=== PATIENT | male | born 1950 | race Caucasian/White ===

== ENCOUNTER 2018-11-03 11:23 | Outpatient (CLI) | payer MEDICARE, BC ==
[~2018-11-03] VITALS: Ht 167.6 cm; Wt 67.3 kg
--- NOTE | ~2018-11-03 | HEMODYNAMI ---
PATIENT:MEY GONZALEZ MEDICAL RECORD: [id number] : 46 LOCATION:[facility] ADMISSION DATE: 11/03/18 Generatedon:11/03/201814:45 Patient name: MEY GONZALEZ Patient #: [id number] SSN: : [birth year] Date of study: 11/03/2018 Page: Of Hemodynamic Procedure Report Patient Data Patient Demographics Procedure consent was obtained First Name: MEY Gender: Male Last Name: LISA : 1950 [facility] Initial: CAIN Age: 68 year(s) Patient #: [id number] Race: Additional ID: [id number] Contact details Address: [address] State: [place] City: [place] Zip code: [address] Past Medical History Allergies: No known allergies Admission Admission Data Admission Date: 11/03/2018 Admission Time: 11:23 Admit Source: Other Lab Results Lab Result Date: 11/03/2018 Lab Result Time: 11:50 Biochemistry Name Units Result Min Max BUN mg/dl 20 --(----)*- 7 18 Creatinine mg/dl 1 --(--*-)-- 0.6 1.3 CBC Name Units Result Min Max Hematocrit % 46.5 --(-*--)-- 42 54 Hemoglobin g/dl 16.5 --(--*-)-- 13.5 17.5 Procedure Procedure Types Cath Procedure Diagnostic Procedure LHC LH w/Coronaries PCI Procedure Coronary Stent Coronary Stent Initial Coronary Stent Additional Procedure Description Procedure Date Procedure Date: 11/03/2018 Procedure Start Time: 14:11 Procedure End Time: 14:44 Procedure Staff Name Function Reno Miranda MD Performing Physician Kirill Lenz RT Monitor Bandar Stevenson RT Scrub Deedee Dutton RN Nurse Procedure Data Cath Procedure Fluoroscopy Diagnostic fluoroscopy Total fluoroscopy Time: 7.1 time: 7.1 min min Diagnostic fluoroscopy Total fluoroscopy dose: 992 dose: 992 mGy mGy Contrast Material Contrast Material Type Amount (ml) Isovue 300 118 Entry Location Entry Primary Successful Side Size Upsize Upsize Entry Closure Succes sful Closure Location (Fr) 1 (Fr) 2 (Fr) Remarks Device Remarks Femoral Right 5 Fr 6 Fr Exoseal artery Short Estimated blood loss: 10 ml Diagnostic catheters Device Type Used For End Catheter Placement MULTIPACK JL 4.0 5Fr Procedure catheter MULTIPACK 3DRC 5Fr Procedure catheter MULTIPACK Pigtail 5 Fr Procedure catheter Procedure Medications Medication Administration Route Dosage Oxygen etCO2 Nasal cannula 2 l/min Lidocaine 2% added to field 20 Heparin Flush Bag added to field 2 bags (1000units/500ml NS) 0.9% NaCl I.V. 100 ml/hr Versed I.V. 1 mg Fentanyl I.V. 50 mcg Versed I.V. 1 mg Heparin Bolus I.V. 4000 units Integrilin (Bolus I.V. 6.2 ml 2mg/ml) Fentanyl I.V. 50 mcg Plavix P.O. 600 mg Hemodynamics Rest Heart Rate: 67 (bpm) Pressure Samples Time Site Value (mmHg) Purpose Heart Use Rate(bpm) 14:18 LV 143/-5,6 Snapshot 80 14:19 LV 166/-5,16 EDP 61 Snapshots Pre Cath Intra NCS Post Cath Vital Signs Time Heart Resp SPO2 etCO2 NIBP (mmHg) Rhythm Pain Sedation Rate (ipm) (%) (mmHg) Status Level (bpm) 14:05:40 67 16 96 31.6 118/67(86) NSR 0 (11) 10(A) , No pain 14:09:52 76 14 96 0 122/58(69) NSR 0 (11) 10(A) , No pain 14:13:56 73 17 96 0 102/66(75) NSR 0 (11) 9(A) , No pain 14:18:02 66 19 94 0 110/69(98) NSR 0 (11) 9(A) , No pain 14:22:10 75 17 96 0 113/69(88) NSR 0 (11) 9(A) , No pain 14:26:18 77 18 95 0 121/75(95) NSR 0 (11) 9(A) , No pain 14:31:17 73 19 98 22.5 139/82(130) NSR 0 (11) 10(A) , No pain 14:35:31 73 19 98 33.8 141/94(123) NSR 0 (11) 10(A) , No pain 14:39:49 81 7 98 32.3 153/82(117) NSR 0 (11) 10(A) , No pain 14:44:11 64 11 99 22.5 143/81(128) NSR 0 (11) 10(A) , No pain Medications Time Medication Route Dose Verified Delivered Reason Notes Effectiveness by by 14:04:51 Oxygen etCO2 2 Reno Mark used for Nasal l/min St Ashwin Dutton RN procedure cannula 14:05:00 Lidocaine 2% added 20ml Reno Bojorquez for local to vial [facility] anesthetic field MD DUMONT 14:05:08 Heparin Flush added 2 Reno Bojorquez used for Bag to bags [facility] procedure (1000units/500ml field MD DUMONT NS) 14:05:20 0.9% NaCl I.V. 100 Reno Mark Per physician ml/hr St Ashwin Dutton RN, MD 14:09:34 Versed I.V. 1 mg Reno Mark for sedation St Ashwin Dutton RN, MD 14:09:40 Fentanyl I.V. 50 Reno Mark for sedation mcg [facility] Ashwin Dutton RN, MD 14:13:10 Versed I.V. 1 mg Reno Mark for sedation St Ashwin Dutton RN, MD 14:21:13 Heparin Bolus I.V. 4000 Reno Mark for verif ied units St Ashwin Dutton RN anticoagulation with dr MD larry 14:22:43 Integrilin I.V. 6.2 Reno Mark for waste d (Bolus 2mg/ml) ml St Ashwin Dutton RN antiplatelet 3.8 ml MD therapy of vial 14:29:43 Fentanyl I.V. 50 Reno Mark for sedation mcg [facility] Ashwin Dutton RN, MD 14:33:48 Plavix P.O. 600 Reno [address] for mg [facility] Ashwin Dutton RN antiplatelet therapy Procedure Log Time Note 13:50:56 Informed consent obtained and on chart 13:50:59 Admit Source: Other 13:51:44 Diagnostic Cath status Elective 13:51:46 Deedee Dutton RN sent for patient. Start room use. 13:51:46 Time tracking: Regular hours (M-F 7:00 - 5:00) 13:51:50 Plan of Care:Hemodynamics will remain stable., Cardiac rhythm will remain stable., Comfort level will be maintained., Respiratory function will remain adequate., Patient/ family verbilizes understanding of procedure., Procedure tolerated without complication., Recovers from procedure without complications.. 13:52:59 Lab Result : BUN 20 mg/dl ::59 Lab Result : Hemoglobin 16.5 g/dl 13:52:59 Lab Result : Creatinine 1 mg/dl 13::59 Lab Result : Hematocrit 46.5 % 13:53:01 Lab results completed and on chart. 13:53:15 H&P Date Dictated: 10/27/2018 Within 30 days and on chart., H&P Addendum completed by physician on day of procedure. (MUST COMPLETE FOR ALL OUTPATIENTS). 13:54:39 Patient received from Pre/Post Procedure Room to CCL 1 Alert and oriented. Tansferred to table in Supine position. 13:54:42 Warm blankets applied, and malu hugger turned on for patient comfort. 13:54:43 Correct patient and procedure confirmed by team. 13:54:43 ECG and BP/O2 sat monitors applied to patient. 13:54:45 Pre-procedure instructions explained to patient. 13:54:46 Pre-op teaching completed and patient verbalized understanding. 13:54:48 Family in waiting room. 13:54:51 Patient NPO since Breakfast. 13:54:58 Patient allergic to No known allergies 14:04:36 Vital chart was started 14:04:51 Oxygen 2 l/min etCO2 Nasal cannula was administered by Deedee Dutton RN; used for procedure; 14:05:00 Lidocaine 2% 20ml vial added to field was administered by Reno Miranda MD; for local anesthetic; 14:05:08 Heparin Flush Bag (1000units/500ml NS) 2 bags added to field was administered by Reno Miranda MD; used for procedure; 14:05:20 0.9% NaCl 100 ml/hr I.V. was administered by Deedee Dutton RN; Per physician; 14:06:18 Is the patient allergic to Iodine/contrast media? No. 14:06:31 Is patient on blood thinner?No 14:06:38 Patient diabetic? No. 14:06:45 ----Pre-sedation anethsthesia assessment.---- 14:06:52 Previous problem with sedation/anesthesia? No ? 14:06:54 Snore? Yes 14:06:56 Sleep apnea? No 14:07:02 Deviated septum? Yes 14:07:04 Opens mouth fully? Yes 14:07:07 Sticks out tongue? Yes 14:07:15 Airway obstruction? No ? 14:07:18 Dentures? No ? 14:07:24 Pre procedure: right dorsailis pedis pulse 2+ Normal; easily identifiable; not easily obliterated 14:07:29 Modified Devonte's test Ulnar < 7 seconds 14:07:49 PATIENT FAILED ALLENS 14:07:55 Baseline sample Acquired. 14:07:59 Rhythm: sinus rhythm 14:08:01 Full Disclosure recording started 14:08:15 Patient pain scale 0/10 ?. 14:08:26 IV patent on arrival in left hand with 0.9% NaCl at [facility]. 14:08:32 Right groin area was prepped with chlora-prep and draped in sterile fashion 14:08:33 Alarms reviewed by R. N. 14:08:34 Sharps counted by scrub and verified by R.N. 14:08:38 Physician arrived 14:08:39 --------ALL STOP TIME OUT------ 14:08:39 Final Timeout: patient, procedure, and site verified with staff and physician. All members of the team are in agreement. 14:08:41 Right groin site verified by team. 14:08:47 Maximum allowable Isovue 300 dose 300ml. Physician notified. (300ml for normal creatinines. For patients with creatinine of 1.7 or higher multiply weight(kg) x 5 divided by creatinine.) 14:08:53 Fire Safety Assessment: A--An alcohol-based skin anteseptic being used preoperatively., C--Open oxygen or nitrous oxide is being used., D--An ESU, laser, or fiber-optic light is being used. 14:09:01 Physical assessment completed. ASA score P 2 - A patient with mild systemic disease as per Reno Miranda MD. 14:09:17 Sedation plan: IV Moderate Sedation Medication:Versed, Fentanyl 14:09:34 Versed 1 mg I.V. was administered by Deedee Dutton RN; for sedation; 14:09:35 Use device set Femoral Dx 14:09:36 ACIST Syringe (88271) opened to sterile field. 14:09:37 Bag Decanter (2002S) opened to sterile field. 14:09:38 Medline Cath Pack ([id number]) opened to sterile field. 14:09:38 DIAGNOSTIC WIRE .035 260cm J wire (759583) opened to sterile field. 14:09:40 Fentanyl 50 mcg I.V. was administered by Deedee Dutton RN; for sedation; 14:09:41 ACIST Hand Control (28417) opened to sterile field. 14:09:42 ACIST Manifold (25435) opened to sterile field. 14:09:44 DIAGNOSTIC Multipack 5Fr catheter set ([id number]) opened to sterile field. 14:09:47 Tegaderm 4 x 4 (1626W) opened to sterile field. 14:09:51 SHEATH 5FR Mclean (KBO970) opened to sterile field. 14:11:10 Procedure started. 14:11:15 Local anesthetic to right femoral artery with Lidocaine 2% by Reno Miranda MD.INITIAL ACCESS ONLY 14:12:09 A 5 Fr sheath was inserted into the Right Femoral artery 14:12:17 Zero performed for pressure channel P1 14:12:44 A MULTIPACK JL 4.0 5Fr catheter was advanced over the wire and used for Procedure. 14:13:10 Versed 1 mg I.V. was administered by Deedee Dutton RN; for sedation; 14:13:26 LCA angiography performed. 14:14:22 Catheter removed. 14:14:45 A MULTIPACK 3DRC 5Fr catheter was advanced over the wire and used for Procedure. 14:15:11 RCA angiography performed. 14:16:26 A MULTIPACK Pigtail 5 Fr catheter was advanced over the wire and used for Procedure. 14:16:48 INFLATOR Merit BasixCompak (EF4253) opened to sterile field. 14:18:04 SHEATH 6FR Mclean (CWJ192) opened to sterile field. 14:18:15 WHISPER 300cm guide wire ([id number]) opened to sterile field. 14:19:14 LV gram done using GLORIA 14:19:20 EF : 55 % 14:19:25 LV hemodynamics recorded. 14:19:35 GUIDE 6FR XBLAD 3.5 catheter ([id number]) opened to sterile field. 14:19:49 Sheath upsized to a 6 Fr Short. 14:20:13 Proceeding to intervention. 14:20:26 PCI Cath status Elective 14:20:36 6 Fr XBLAD 3.5 guide catheter was inserted over the wire 14:21:13 Heparin Bolus 4000 units I.V. was administered by Deedee Dutton RN; for anticoagulation; verified with dr larry 14:22:21 WHISPER wire advanced. 14:22:23 Wire advanced across lesion. 14:22:30 LAD 14:22:43 Integrilin (Bolus 2mg/ml) 6.2 ml I.V. was administered by Deedee Dutton RN; for antiplatelet therapy; wasted 3.8 ml of vial 14:24:32 Place stent Inflation Number: 1 A IRVING RX 3.0 x 18 stent ([id number]) was prepped and advanced across the Mid LAD. The stent was deployed at 14 ZEHCARIAH for 0:30 (min:sec). 14:25:31 Wire redirected to DIAGONAL. 14:27:14 Stent catheter was removed intact over wire. 14:29:15 Place stent Inflation Number: 1 A IRVING OTW 2.5 x 18 stent ([id number]) was prepped and advanced across the 1st Diag. The stent was deployed at 12 ZECHARIAH for 0:30 (min:sec). 14:29:20 EXOSEAL 6Fr (EX600) opened to sterile field. 14:29:37 Wire redirected to LAD. 14:29:43 Fentanyl 50 mcg I.V. was administered by Deedee Dutton RN; for sedation; 14:30:34 Wire removed. unable to cross lesion. 14:31:07 WHISPER 300cm guide wire ([id number]) opened to sterile field. 14:31:27 NEW WHISPER wire advanced. 14:31:41 LAD 14:31:55 Stent balloon re-inserted over wire. 14:32:31 Inflation number: 2 The stent balloon was then re-inflated across the Mid LAD to 6 ZECHARIAH for 0:30 (min:sec). 14:32:44 Stent catheter was removed intact over wire. 14:32:45 Wire removed. 14:32:50 Guide catheter removed. 14:33:15 Procedure type changed to Cath procedure, Diagnostic procedure, LHC, LHC w/Coronaries, PCI procedure, Coronary Stent, Coronary Stent Initial, Coronary Stent Additional 14:33:43 Sheath removed intact; hemostasis achieved with Exoseal to the Right Femoral artery. 14:33:46 Procedure ended.(Physican Out) 14:33:48 Plavix 600 mg P.O. was administered by Deedee Dutton RN; for antiplatelet therapy; 14:33:59 Fluoroscopy time 07.10 minutes. 14:34:14 Fluoroscopy dose: 992 mGy 14:34:14 Flurop Dose total: 992 14:34:22 Contrast amount:Isovue 300 118ml. 14:34:24 Sharps counted by scrub and verified by R.N. 14:42:22 Post-op/insertion site Right Femoral artery dressed using a 4 x 4 and Tegaderm. 14:42:30 Post right femoral artery:hematoma 14:42:47 Femstop placed over the right femoral artery at 142 mmHg. Hemostasis achieved. 14:43:27 Post procedure: right dorsailis pedis pulse 1+ Palpable, but thready & weak; easily obliterated. 14:43:31 Post-procedure physical assessment completed. ASA score P 2 - A patient with mild systemic disease as per Reno Miarnda MD. 14:43:35 Post procedure rhythm: sinus rhythm 14:43:38 Estimated blood loss: 10 ml 14:44:07 Patient needs reinforcement of post procedure teaching. 14:44:09 Procedure and supply charges have been captured, reviewed, submitted and are correct. 14:44:10 Vital chart was stopped 14:44:11 See physician's report for complete and final results. 14:44:18 Report given to Pre/Post Procedure Room. 14:44:23 Patient transfered to Pre/Post Procedure Room with Stretcher. 14:44:26 Procedure ended. 14:44:26 Full Disclosure recording stopped 14:44:31 End room use (Document Last) Intervention Summary Intervention Notes Time ActionType Lesion and Equipment Used Action# Pressure Duration Attributes 14:24:32 Place stent Mid LAD IRVING RX 3.0 x 1 14 00:30 18 stent ([id number]) 14:29:15 Place stent 1st Diag IRVING OTW 2.5 x 1 12 00:30 18 stent ([id number]) 14:32:31 Reinflate Mid LAD IRVING OTW 2.5 x 2 6 00:30 stent 18 stent balloon ([id number]) Device Usage Item Name Manufacture Quantity Catalog Hospital Part [facility] Lot# / Number Charge Number Stock Stock Serial# Code ACIST Syringe Acist 1 48540 731560 756667 431501 20 (68877) Medical Systems Inc Bag Decanter Microtek 1 013152 80120 799481 5 () Medical Inc. Medline Cath Medline 1 [id number] 756819 60982 442760 5 Pack ([id number]) DIAGNOSTIC St Lionel 1 062010 979691 648700 495733 30 WIRE .035 260cm J wire (711799) ACIST Hand Acist 1 04871 138031 203201 262765 5 Control Medical (09805) Systems Inc ACIST Manifold Acist 1 21741 812444 356914 109774 5 (71463) Medical Systems Inc DIAGNOSTIC Cardinal 1 WW5302 119310 25272 173675 30 Multipack 5Fr Health catheter set (LP3146) Tegaderm 4 x 4 3M 1 1626W 853669 789539 406822 5 (1626W) SHEATH 5FR Terumo 1 SAO493 845624 135252 680998 5 Mclean (AXH006) MULTIPACK JL Cardinal 1 611594 5 4.0 5Fr Health catheter MULTIPACK 3DRC Cardinal 1 233189 5 5Fr catheter Health MULTIPACK Cardinal 1 048170 5 Pigtail 5 Fr Health catheter INFLATOR Merit Merit 1 WE2917 329820 248923 630022 15 NX [facility] ([id number]) SHEATH 6FR Terumo 1 WPP850 579418 009029 408334 40 Mclean (FRH280) WHISPER 300cm Martinez 2 [id number] 070065 580507 983483 5 guide wire Vascular ([id number]) GUIDE 6FR Cardinal 1 [id number] 036856 682976 653327 10 XBLAD 3.5 Health catheter ([id number]) IRVING RX 3.0 x Medtronic 1 [id number] 153094 8465393 156229 5 [id number] 18 stent ([id number]) IRVING OTW 2.5 x Medtronic 1 [id number] 062383 46116 495981 5 [id number] 18 stent ([id number]) EXOSEAL 6Fr Cardinal 1 EX600 909066 872186 497213 10 (EX600) Health Signature Audit Deforest Stage Time Signature Unsigned Intra-Procedure 11/03/2018 Kirill Lenz 2:45:07 PM RT(R) (CV) Signatures Monitor : Kirill Lenz RT Signature : Date : Time : [id number] [place] [address]
[~2018-11-03 11:23] MED LIST: BENADRYL INJ50 MG/ML PO; COLACE100 MG PO; DULCOLAX10 MG/SUPP RC; ELIQUIS2.5 MG PO; MIRALAX17 GM PO; MS CONTIN30 MG PO; PERCOCET 10/3251 TA1 PO; SENOKOT-S TABLE1 TAB PO
[2018-11-03] MEDS ORDERED: BAYER CHEWABLE81 MG PO (11:41)
[2018-11-03] MEDS ORDERED: B-12 DOTS500 MCG PO (11:42)
[2018-11-03 11:50] VITALS: BP 155/75; Ht 167.6 cm; Wt 67.3 kg
[2018-11-03 11:58] LABS: BASOPHILS 0.6 % (0-2); EOSINOPHILS 2.4 % (0-7); HEMATOCRIT 46.5 % (42.0-54.0); HEMOGLOBIN 16.5 g/dL (13.5-17.5); IMMATURE GRANULOCYTES 0.3 % (0-5); LYMPHOCYTES 23.5 % (15-50); MCH 30.7 pg (26.0-34.0); MCHC 35.5 g/dL (31.0-37.0); MCV 86.6 fL (80.0-100.0); MEAN PLATELET VOLUME 10.5 fL (7.4-10.4); MONOCYTES 11.3 % (2-11); NEUTROPHILS 61.9 % (40-80); PLATELET COUNT 194 10x3/uL (130-400); RBC 5.37 10x6/uL (4.20-6.10); RDW 14.3 % (11.5-14.5); WBC 7.1 10x3/uL (4.8-10.8)
[2018-11-03 12:06] LABS: CALC OSMOLALITY 278 mosm/kg (275-300); CALCIUM 9.2 mg/dL (8.5-10.1); CARBON DIOXIDE 23.1 mmol/L (21.0-32.0); CHLORIDE - SERUM 104 mmol/L (98-107); GLUCOSE 96 mg/dL (74-106); POTASSIUM - SERUM 4.1 mmol/L (3.5-5.1); SODIUM 138 mmol/L (136-145); UREA NITROGEN 20 mg/dL (7-18); eGFR NON AFRICAN AMERICAN 78 mL/min (90-120)
[2018-11-03] MEDS ORDERED: PLAVIX75 MG PO (14:57)
--- NOTE | 2018-11-03 15:02 | NUR ---
RECIEVED TO ROOM VIA STRETCHER FROM SHIPYARD HELPER WITH FEMSTOP TO R/GROIN. PRESSURE IS AT 150 WITH HEMATOMA MARKED FOR OBSERVATION. R/FOOT IS WARM TO TOUCH WITH PULSES PALPABLE. PATIENT DENIED CHEST PAIN ON ARRIVAL HR 60 BP 142/80
--- NOTE | 2018-11-03 15:16 | NUR ---
FEMSTOP REMAINS TO R/GROIN WITH PRESSURE AT 150 NO ADDITIONAL GROWTH TO HEMATOMA. HR 64 BP 154/82 CHEST PAIN IS DENIED
--- NOTE | 2018-11-03 15:33 | NUR ---
TOLERATING SIPS OF SODA WITH NAUSEA DENIED. FEMSTOP REMAINS CDI WITH NO GROWTH TO HEMATOMA
--- NOTE | 2018-11-03 15:47 | NUR ---
PRESSURE TO FEMSTOP LOWERED TO 120 WITH NO GROWTH TO HEMATOMA
--- NOTE | 2018-11-03 15:55 | NUR ---
PRESSURE SLOWLY LOWERED TO 100 WITH NO GROWTH TO HEMATOMA
--- NOTE | 2018-11-03 16:10 | NUR ---
PRESSURE TO FEMSTOP LOWERED TO 100 NO GROWTH TO HEMATOMA
--- NOTE | 2018-11-03 16:28 | NUR ---
PRESSURE TO FEMSTOP REMOVED WITH FEMSTOP STILL IN PLACE NO BLEEDING OR GROWTH TO HEMATOMA. VSS
--- NOTE | 2018-11-03 17:00 | NUR ---
PT RESTING W EYES CLOSED, FEMSTOP IN PLACE TO R GROIN W/O PRESSURE. NO BLEEDING OR GROWTH IN HEMATOMA. PEDAL PULSES PALPABLE. SIPS OF SPRITE GIVEN. PT DENIES PAIN OR NEEDS AT THIS TIME. CALL LIGHT IN REACH AND FAMILY REMAINS AT BEDSIDE. VSS.
--- NOTE | 2018-11-03 17:30 | NUR ---
PT STATES NEEDS TO VOID BUT CAN'T IN THE BED, EXPLAINED HE COULDN'T GET UP RIGHT NOW AND HE WANTS TO WAIT. GROIN STILL W FEMSTOP IN PLACE W/O PRESSURE. HEMATOMA REMAINS SAME HASN'T GROWN IN SIZE. NO BLEEDING OR ADD'L SWELLING NOTED. HOB ELEVATED SLIGHTLY FOR COMFORT. CALL LIGHT IN REACH
--- NOTE | 2018-11-03 17:58 | NUR ---
FEMSTOP REMOVED, NO BLEEDING OR ADD'L SWELLING NOTED. HEMATOMA SAME SIZE AND SOFT TO TOUCH. 4X4 AND LG TEGADERM DRESSING APPLIED. VSS. DENIES OTHER NEEDS.
--- NOTE | 2018-11-03 18:12 | NUR ---
IV REMOVED W CATH INTACT, MONITORS REMOVED. R GROIN DRESSING CDI, NO BLEEDING OR ADD'L SWELLING NOTED. PT AMBULATED TO BR.
--- NOTE | 2018-11-03 18:27 | NUR ---
DISCHARGE INSTRUCTIONS REVIEWED W PT AND , BOTH VERBALIZED UNDERSTANDING. 1830 PT DISCHARGED VIA WC WITH ALL BELONGINGS TO PRIVATE VEHICLE
--- NOTE | 2018-11-08 13:26 | OP ---
PATIENT NAME: MEY GONZALEZ MEDICAL RECORD: [id number] :46 LOCATION:D.CAT ADMISSION DATE: SURGEON: LEONIDAS LEGGETT MD DATE OF OPERATION: 11/03/2018 PROCEDURE: Left heart catheterization, selective coronary angiography plus PTCA and stent, right femoral artery approach. CATHETERS: A 5-Bolivian sheath, 5/4 pig. The procedure was well tolerated. We proceeded immediately with stenting to LAD and stenting to diagonal. FINDINGS: Left ventriculography in 30-degree GLORIA view: Normal wall motion. Normal systolic function. CORONARY ANATOMY: LEFT MAIN: Left main is free of disease. LAD: It has a complex stenosis from just past the first diagonal to after the first septal, about 80%. There is a moderate-size diagonal 1 that has about elongated 80% stenosis. CIRCUMFLEX: Free of disease. RIGHT CORONARY ARTERY: It has 80% stenosis in mid portion. PLAN: Intervention in a staged fashion. DESCRIPTION OF PROCEDURE: A 5-Bolivian sheath was exchanged for a 6-Bolivian sheath. XB LAD guiding catheter provided excellent guide catheter support followed by 300 cm Whisper wire placed across the tightly occluded LAD down this portion of the vessel. Stent deployed was 3.0 x 18 mm Knobel drug-eluting stent to 14 atmospheres. Next, the wire was withdrawn and we placed the guidewire down the 80% stenosed diagonal. Stent deployed was 2.5 x 15 mm again Donnell drug-eluting stent up to 14 atmospheres for 45 seconds. Final angiography shows excellent resolution of 80% stenosis in the LAD and 70% to 80% stenosis in the diagonal. MAREK flow was 3 throughout the procedure. Sheath was closed with ExoSeal device. Plavix was loaded in the lab. Plan for intervention on the right at a later date. TRANSINT:[id number] Voice Confirmation ID: [id number] DOCUMENT ID: [id number] LEONIDAS LEGGETT MD at 1326 CC: [id number] DICTATION DATE: 11/03/18 1440 RUBY ON RAILS WEB DEVELOPER: 11/03/18 1846 DEP CLI 11/03/18 [place] [address]
== END 2018-11-03 18:29 | disposition home or self-care (01) ==
LOC: D.CATH 11:23
PROVIDERS: ATTEND Internal Medicine Interventional Cardiology
DX: I25.119 Atherosclerotic heart disease of native coronary artery with unspecified angina pectoris (principal); Z01.812 Encounter for preprocedural laboratory examination
CPT/HCPCS: 93458; C9600; C9601

== ENCOUNTER 2018-11-10 11:49 | Outpatient (CLI) | payer MEDICARE, BC | END 2018-11-10 17:15 | disposition home or self-care (01) | LOC: D.CATH 11:49 | DX: I25.10 Atherosclerotic heart disease of native coronary artery without angina pectoris (principal) ==

== ENCOUNTER → 2019-04-11 09:55 | Outpatient (CLI) | payer MEDICARE, BC ==
[2018-11-10 12:20] VITALS: BMI 22.3
[~2019-04-11 09:55] MED LIST changes: +B-12 DOTS500 MCG PO; +BAYER CHEWABLE81 MG PO; +HYDROCODON-ACE1 EA10 PO; +KEFLEX500 MG PO; +PLAVIX75 MG PO
== END | disposition home or self-care (01) ==
LOC: D.CT 09:55
PROVIDERS: ATTEND Nurse Practitioner Family
DX: M25.561 Pain in right knee (principal)

== ENCOUNTER 2019-05-19 05:11 | Day surgery (SDC) | payer MEDICARE, BC ==
[~2019-05-19] VITALS: Ht 167.6 cm; Wt 62.6 kg
[~2019-05-19 05:11] MED LIST changes: -HYDROCODON-ACE1 EA10 PO; -KEFLEX500 MG PO
[2019-05-19 05:53] LABS: HEMATOCRIT 45.7 % (42.0-54.0); HEMOGLOBIN 15.5 g/dL (13.5-17.5); MCH 30.2 pg (26.0-34.0); MCHC 33.9 g/dL (31.0-37.0); MCV 88.9 fL (80.0-100.0); MEAN PLATELET VOLUME 10.5 fL (7.4-10.4); RBC 5.14 10x6/uL (4.20-6.10); RDW 14.1 % (11.5-14.5); WBC 7.3 10x3/uL (4.8-10.8)
[2019-05-19 06:12] VITALS: BP 140/75; Ht 167.6 cm; Wt 62.6 kg
[2019-05-19] MEDS ORDERED: KEFLEX500 MG PO (08:21)
[2019-05-19] MEDS ORDERED: HYDROCODON-ACE1 EA10 PO (08:21)
--- NOTE | 2019-05-19 11:32 | OP ---
PATIENT NAME: MEY SERRANO MEDICAL RECORD: [id number] :46 LOCATION:[facility]OPS ADMISSION DATE: SURGEON: GRANT MUNOZ DO DATE OF OPERATION: 05/19/2019 PROCEDURE PERFORMED: Removal of loose body of the right knee with partial lateral meniscectomy. PREOPERATIVE DIAGNOSIS: Loose body of the right knee. POSTOPERATIVE DIAGNOSES: Loose body of the right knee with lateral meniscal tear. INDICATIONS: Mr. 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 He has had some catching, popping. He had a CT done, which showed a loose body in the knee, quite large. I informed him that I could scope and try to remove it to give him some relief, but I could not promise that it would not recur or he would not have continued pain. He was okay with that and signed the consent. He is aware of the risk of infection with the uni knee in there as well as bleeding, damage to nerves and vessels, and the need for further surgery, and he signed the consent. SURGEON: Grant Munoz DO DESCRIPTION OF PROCEDURE: The patient was taken to the operative suite, given a general anesthetic and a gram of Ancef. LMA was placed. The right lower extremity was then prepped and draped in sterile fashion. Timeout was performed. Everyone was in agreement with correct side, site, and patient and procedure. The incision then began over the lateral aspect of the knee for the portal after it was injected with 1 mL of 0.25% Marcaine with epinephrine there and on the medial side. A trocar was entered into the knee. The knee was inspected. Loose body was seen in the lateral gutter, not the medial gutter and then the notch had some synovitis. The medial portal was then established with an 18-gauge spinal needle and 11-blade scalpel. A shaver was brought in trim out some of the synovitis to get a better view. Notch was inspected. ACL was in good repair. There were no loose bodies in the notch. A probe was then brought in. The knee was [id number], lateral compartment was inspected. The cartilage was in good repair, but I did see a meniscal tear on the very inner portion. The shaver was brought in to trim that down. The partial lateral meniscectomy was done at that time. Then, switched portals and got a view of the loose body in the lateral gutter. We then switched back to lateral portal and a lateral stab incision was made, to grab the loose body out to reach the loose body better and then to burn some of the bleeders. The tourniquet was inflated at that time for 5 minutes and let down. Bleeding was coagulated with the burner. The loose body was grabbed with a grasper and taken out through the lateral portal. Tourniquet was then let down after bleeding had been coagulated and no bleeding was seen after that. The loose body was removed and the incision sites were closed with 5-0 Monocryl in inverted interrupted fashion. Steri-Strips, Adaptic, 4 x 4's, ABD, Webril, Jaylan wrap were then placed on the knee and KRYSTEN hose stockinette up to the knee. He was awakened and taken to recovery in stable condition. BLOOD LOSS: Minimal. COMPLICATIONS: None. OPERATIVE REPORT [id number] MEY SERRANO TRANSINT:[id number] Voice Confirmation ID: [id number] DOCUMENT ID: [id number] GRANT MUNOZ DO at 1132 CC: [id number] DICTATION DATE: 05/19/19817 MISSION COMMANDER: 05/19/19 1007 [facility] 05/19/19 [facility] [address] [place] [address]
== END 2019-05-19 10:20 | disposition home or self-care (01) ==
LOC: D.OPS 05:11 → D.PAN 07:00 → D.OPS 10:20
PROVIDERS: Anesthesiology; ATTEND Orthopaedic Surgery
DX: S83.281A Other tear of lateral meniscus, current injury, right knee, initial encounter (principal)

== ENCOUNTER → 2019-08-22 08:39 | Outpatient (CLI) | payer MEDICARE, BC ==
[2019-05-19 06:12] VITALS: BMI 22.3
--- NOTE | ~2019-08-22 | EC ---
PATIENT:MEY GONZALEZ DATE OF SERVICE: 08/22/19 SEX: M MEDICAL RECORD: [id number] DATE OF : [birth year] LOCATION:[facility] AGE OF PATIENT: 69 ADMISSION DATE: 08/22/19 REFERRING PHYSICIAN: INTERPRETING PHYSICIAN: LEONIDAS LEGGETT MD ECHOCARDIOGRAM REPORT ECHO CHARGES 4 ECHO COMPLETE Date: 08/22/19 CLINICAL DIAGNOSIS: CAD/ASSESS EF AND VALVES ECHOCARDIOGRAPHIC MEASUREMENTS (adult normal given) AC root (d.<3.7cm) 2.6 cm LV Septum d (<1.2 cm> 1.3 cm Valve Excursion 1.2 cm LV Septum (systole) 1.5 cm Left Atria (s.<4.0cm> 3.0 cm LVPW d(<1.2cm) 1.2 cm RV (d.<2.3cm) 3.6 cm LVPW (sytole) 1.7 cm LV diastole(<5.6CM) 3.4 cm MV E-F(>70mm/sec) cm LV systole 1.8 cm LVOT Diameter 1.6 cm MV exc.(>10mm) cm Est.ejection fraction (50-75%) % DOPPLER: LVIT cm/sec A 60.0 cm/sec E 85.0 cm/sec LA cm/sec RVSP 19 mmHg LVOT 114 cm/sec AOP1/2T m/s Asc. Ao 142 cm/sec RVOT 59 cm/sec RA cm/sec PA 99 cm/sec AV Gradient Peak 8.05 mmHg AV Mean 4.63 mmHg AV Area 1.7 cm MV Gradient Peak 2.85 mmHg MV Mean 0.86 mmHg MV Area cm COMMENTS: Cad Application Support Specialist: 2 MARC RIVAS Topographical Surveyor: 3 Dr. Shane TAPE# PACS Pericardial Effusion N DATE OF SERVICE: Adequate 2D, color flow imaging, spectral Doppler, and M-Mode. Mild LVH. LV internal dimension is normal. Wall motion is normal. EF is greater than or equal to 55%. Aortic valve is tricuspid. No evidence of stenosis by Doppler interrogation. Left atrium is normal at 3.0 cm. Mitral valve shows no prolapse. Trace MR. Right-sided chambers are grossly normal. Mild TR. TRANSINT:[id number] Voice Confirmation ID: [id number] DOCUMENT ID: [id number] ECHOCARDIOGRAM REPORT [id number] MEY GONZALEZ GREGORY A MD CC: [id number] DICTATION DATE: 08/24/19 1521 LITHOGRAPHIC RETOUCHER APPRENTICE: 08/24/19 2209 DEP CLI 08/22/19 [id number] [place] [address]
[~2019-08-22 08:39] MED LIST changes: +HYDROCODON-ACE1 EA10 PO; +KEFLEX500 MG PO
== END | disposition home or self-care (01) ==
LOC: D.HCCECHO 08:39
PROVIDERS: ATTEND Internal Medicine Interventional Cardiology
DX: I25.10 Atherosclerotic heart disease of native coronary artery without angina pectoris (principal)

== ENCOUNTER → 2019-09-05 08:58 | Outpatient (CLI) | payer MEDICARE, BC ==
[2019-05-19 06:12] VITALS: BMI 22.3
== END | disposition home or self-care (01) ==
LOC: D.HCCARDIO 08:58
PROVIDERS: ATTEND Internal Medicine Cardiovascular Disease
DX: I25.119 Atherosclerotic heart disease of native coronary artery with unspecified angina pectoris (principal)

== ENCOUNTER → 2020-09-12 07:47 | Outpatient (CLI) | payer MEDICARE, BC ==
[2019-05-19 06:12] VITALS: BMI 22.3
--- NOTE | ~2020-09-12 | EC ---
PATIENT:MEY GONZALEZ DATE OF SERVICE: 09/12/20 SEX: M MEDICAL RECORD: [id number] DATE OF : [birth year] LOCATION:D.[facility]LY [facility] AGE OF PATIENT: 70 ADMISSION DATE: 09/12/20 REFERRING PHYSICIAN: INTERPRETING PHYSICIAN: LEONIDAS LEGGETT MD ECHOCARDIOGRAM REPORT ECHO CHARGES 4 ECHO COMPLETE Date: 09/12/20 CLINICAL DIAGNOSIS: CAD/ASSESS EF/AORTIC SCLEROSIS ECHOCARDIOGRAPHIC MEASUREMENTS (adult normal given) AC root (d.<3.7cm) 2.8 cm LV Septum d (<1.2 cm> 1.2 cm Valve Excursion 1.1 cm LV Septum (systole) 1.3 cm Left Atria (s.<4.0cm> 3.4 cm LVPW d(<1.2cm) 1.1 cm RV (d.<2.3cm) 3.9 cm LVPW (sytole) 1.2 cm LV diastole(<5.6CM) 4.0 cm MV E-F(>70mm/sec) cm LV systole 2.8 cm LVOT Diameter 1.5 cm MV exc.(>10mm) 1.0 cm Est.ejection fraction (50-75%) % DOPPLER: LVIT cm/sec A 60.0 cm/sec E 73.0 cm/sec LA 77 cm/sec RVSP 32 mmHg LVOT 125 cm/sec AOP1/2T m/s Asc. Ao cm/sec RVOT cm/sec RA cm/sec PA 95 cm/sec AV Gradient Peak 6.30 mmHg AV Mean 3.10 mmHg AV Area 1.5 cm MV Gradient Peak 3.73 mmHg MV Mean 1.37 mmHg MV Area cm COMMENTS: Paraprofessional Interpreter: 2 MARC RIVAS Flash Oven Operator: 3 Dr. Shane TAPE# PACS Pericardial Effusion N DATE OF SERVICE: Adequate 2D, color-flow imaging, spectral Doppler, and M-Mode FINDINGS: No LVH. LV internal dimensions are normal. Wall motion was normal. EF is greater than or equal to 55%. Aortic valve is sclerotic. No evidence of stenosis by Doppler interrogation. Left atrium is normal at 3.4 cm. Mitral valve shows no prolapse. Trace MR. Right side is grossly normal. Mild TR. TRANSINT:[id number] Voice Confirmation ID: [id number] DOCUMENT ID: [id number] ECHOCARDIOGRAM REPORT [id number] MEY GONZALEZ GREGORY A MD CC: [id number] DICTATION DATE: 09/13/20923 ASSIGNMENT DESK EDITOR: 09/13/20 1732 DEP CLI 09/12/20 [place] [id number]
== END | disposition home or self-care (01) ==
LOC: D.HCCECHO 07:47
PROVIDERS: ATTEND Internal Medicine Interventional Cardiology
DX: I25.10 Atherosclerotic heart disease of native coronary artery without angina pectoris (principal)